=== PATIENT | female | born 1980 | race Caucasian/White ===

== ENCOUNTER → 2016-03-15 | Outpatient (CLI) | payer BC ==
[~2016-03-15] MED LIST: GABA-585 PO; HYDR-2161 PO; IOHEXOL 180 MG/ML 10 ML VIAL. IT ONE; LIDOCAINE 1% Multi-Dose 20 ML VIAL. ID ONE; NAPR220C PO; PHEN37.53 PO; TIZA4TAB PO
--- NOTE | 2016-03-15 16:11 | KCIC ---
PROCEDURE Lumbar spine radiographs HISTORY Low back pain into the right leg for 3 years COMPARISON January 14, 2015 outside facility exam FINDINGS Five views of lumbar spine to include neutral, flexion, and extension lateral radiographs are submitted. There apparently is transitional anatomy although the most inferior fully formed intervertebral disc space will be considered L5-S1 for this report. There is mild levoscoliosis centered about the thoracolumbar junction. Vertebral body stature is maintained other than superior L1 Schmorl's node. Vertebral body AP alignment is within normal limits, does not significantly change with flexion or extension. IMPRESSION 1. AP alignment does not significantly change with flexion or extension. There is mild levoscoliosis centered about the thoracolumbar junction. Electronically signed by: Tha Monzon MD (Mar 15, 2016 16:10:25)
--- NOTE | 2016-03-15 16:12 | KCIC ---
PROCEDURE Lumbar myelogram HISTORY Low back pain into the right leg for 3 years TECHNIQUE Patient was informed of the risks to include pain, infection, bleeding, nerve root injury, seizures, allergic reaction. All questions were answered. Patient signed a written consent form forlumbarmyelogram.The patient was placed in a prone oblique position on the fluoroscopy table. External skin site of the lower back was prepped and draped in the usual sterile fashion. Betadine was utilized for cleansing solution. 1 percent lidocaine was utilized for local anesthesia at the anticipated site of puncture of the right L2-[id number] space. A guiding needle was advanced into the soft tissues. Through the guiding needle, a 25 Benjie needle was advanced until return of cerebral spinal fluid.Fifteen cc [id number] injected during fluoroscopic visualization. [place] were removed. There were no immediate complications. Fluoroscopic spot images were acquired to include standing images of the lumbar spine. The patient was transferred to CT suite for CT examination of the lumbar spine. Fluoroscopy time, fluoroscopy images: Seventy-one seconds, 13 images FINDINGS There is no evidence of myelographic block. There apparently is transitional anatomy with 6 hru-afy-lgohett lumbar type vertebral bodies. However the most inferior fully formed intervertebral disc space will be considered L5-S1 for this report. There is very small anterior extradural defect at what will be considered L4-5. IMPRESSION 1. 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 Most inferior fully formed intervertebral disc space is considered L5-S1 for this report. There is small anterior extradural defect at what is considered L4-5. Electronically signed by: Tha Monzon MD (Mar 15, 2016 16:11:29)
--- NOTE | 2016-03-15 16:13 | KCIC ---
PROCEDURE CT lumbar spine exam HISTORY Low back pain with right radiculopathy TECHNIQUE CT imaging was performed of the lumbar spine after injection for lumbar myelogram. Multiplanar reconstruction images are submitted. Exposure: One or more of the following individualized dose reduction techniques were utilized for this exam: 1. Automated exposure control. 2. Adjustment of the mA and/or kV according to patient size. 3. Use of iterative reconstruction technique. COMPARISON MRI lumbar spine exam April 30, 2015 [facility] FINDINGS There is transitional anatomy of the lumbar spine. The entirety of the most inferior ribs were not included on this exam. There are 6 [id number]-oka-bvcfvce lumbar type vertebral bodies. For the purpose of this report and based on level of termination of conus at L1-2, most inferior fully formed intervertebral disc space will be considered L5-S1. Intervertebral disc spaces are adequate. There is superior Schmorl's node with sclerosis of L1, very small focus inferiorly of T12. L1-2: Spinal canal and neural foramina are adequate. L2-L3: There is mild facet degenerative change. Neural foramina and spinal canal are adequate. L3-4: There is mild facet degenerative change. Spinal canal and neural foramina are adequate. L4-5: There is mild facet degenerative change. Spinal canal and neural foramina are adequate. L5-S1: There is mild facet degenerative change. Neural foramina and spinal canal are adequate. IMPRESSION There is transitional anatomy of the lumbar spine with 6 llj-yck-zzvioxu lumbar type vertebral bodies. Based on level of termination of the conus, most inferior fully formed intervertebral disc space is considered L5-S1 for this report. There is no significant lumbar spinal stenosis or neural foramina compromise. There is superior Schmorl's node of what is considered L1. There is multilevel mild facet degenerative change. Electronically signed by: Tha Monzon MD (Mar 15, 2016 16:12:17)
== END | disposition home or self-care (01) ==
LOC: KCIC 13:16
PROVIDERS: ATTEND Neurological Surgery
DX: M47.897 Other spondylosis, lumbosacral region (principal); M41.85 Other forms of scoliosis, thoracolumbar region; M54.17 Radiculopathy, lumbosacral region
CPT/HCPCS: 72110; 72132; 72265